=== PATIENT | female | born 1995 | race Caucasian/White ===

== ENCOUNTER 2018-08-30 21:42 | Emergency (ER) | payer OTHER ==
[2018-08-30] MEDS ORDERED: METOCLOPRAMIDE 5 MG/ML 2 ML VIAL IVP STA (22:23)
[2018-08-30] MEDS ORDERED: SODIUM CHLORIDE 0.9% 1,000 ML IV STA (22:23)
[2018-08-30] MEDS ORDERED: diphenhydrAMINE 50 MG/ML 1 ML VIAL IVP STA (22:23)
[2018-08-30 22:59] LABS: Basophils % (A) 0 %; Eosinophils # (A) 0.1 k/uL (0-0.7); Eosinophils % (A) 2 %; HCT 41.4 % (34.0-46.0); HGB 13.5 gm/dL (11.4-16.0); Lymphocytes # (A) 0.7 k/uL (1.0-4.8); Lymphocytes % (A) 8 %; MCH 30.1 pg (25.0-35.0); MCHC 32.6 g/dL (31.0-37.0); MCV 92.3 fL (80.0-100.0); Mean Platelet Volume 7.5; Monocytes # (A) 0.3 k/uL (0-1.0); Monocytes % (A) 4 %; Neutrophils # (A) 7.2 k/uL (1.3-7.7); Neutrophils % (A) 85 %; Platelet Count 292 k/uL (150-450); RBC 4.48 m/uL (3.80-5.40); RDW 13.5 % (11.5-15.5); WBC 8.5 k/uL (3.8-10.6)
[2018-08-30 23:07] LABS: ALT 29 U/L (9-52); AST 25 U/L (14-36); Albumin 4.2 g/dL (3.5-5.0); Alkaline Phosphatase 61 U/L (38-126); Amylase 33 U/L (30-110); Anion Gap 10 mmol/L; Blood Urea Nitrogen 6 mg/dL (7-17); Calcium 9.7 mg/dL (8.4-10.2); Carbon Dioxide 20 mmol/L (22-30); Chloride 106 mmol/L (98-107); Glucose 87 mg/dL (74-99); Lipase 41 U/L (23-300); Potassium 4.1 mmol/L (3.5-5.1); Sodium 136 mmol/L (137-145); Total Bilirubin 0.8 mg/dL (0.2-1.3); Total Protein 7.4 g/dL (6.3-8.2)
[2018-08-30 23:15] LABS: Appearance,Urine Cloudy (Clear); Bilirubin,Urine Negative (Negative); Blood,Urine Negative (Negative); Color,Urine Yellow; Glucose,Urine (UA) Negative (Negative); Ketones,Urine 3+ (Negative); Leukocyte Esterase,Urine Moderate (Negative); Mucus,Urine Many /hpf; Nitrite,Urine Negative (Negative); Protein,Urine 1+ (Negative); RBC,Urine 4 /hpf (0-5); Specific Gravity,Urine 1.032 (1.001-1.035); Squamous Epithelial Cell,Urine 37 /hpf (0-4); Urobilinogen,Urine <2.0 mg/dL (<2.0); WBC,Urine 30 /hpf (0-5)
[2018-08-30] MEDS ORDERED: cefTRIAXone IN SWFI 1,000 MG/10 ML SYRINGE IVP STA (23:22)
[2018-08-30] MEDS ORDERED: SODIUM CHLORIDE 0.9% 500 ML 500 ML IV ONE (23:22)
--- NOTE | 2018-08-30 23:58 | ED ---
Abdominal Pain HPI - General Source: patient Mode of arrival: ambulatory Limitations: no limitations <Stefany Martin - Last Filed: 08/31/18 00:19> <Yesica Gonzales - Last Filed: 08/31/18 00:30> - General Chief Complaint: Abdominal Pain Stated Complaint: Abd pain, 17 weeks preg Time Seen by Provider: 08/30/18 22:01 - History of Present Illness Initial Comments: 23-year-old female patient presents to the emergency department today for evaluation of vomiting and diarrhea. Patient states that symptoms started this morning with some lower abdominal discomfort that progressed to abdominal cramping and diarrhea. Patient states later this evening she developed a sharp pain to her midepigastric region and then started vomiting. Patient's emesis is nonbilious and nonbloody. She denies any fevers or chills with this. States that her son was recently sick with similar symptoms. Patient is 17 weeks preg nant she is . Denies any abnormal vaginal bleeding or discharge. States she has had care and visits have been going well. She denies any recent travel. Denies any ingestion of questionable foods. Patient denies any recent rash, shortness breath, chest pain, constipation, back pain, numbness, tingling, dizziness, weakness, hematuria, dysuria, urinary urgency, urinary frequency, headache, visual changes, or any other complaints. (Stefany Martin) - Related Data Home Medications Medication Instructions Recorded Confirmed Levothyroxine Sodium [Synthroid] 50 mcg PO DAILY 08/30/18 08/30/18 Previous Rx's Medication Instructions Recorded Metoclopramide [Reglan] 10 mg PO Q8H PRN #10 tab 08/31/18 Allergies Allergy/AdvReac Type Severity Reaction Status Date / Time amoxicillin AdvReac Swelling Verified 08/30/18 22:20 Review of Systems ROS Other: All systems not noted in ROS Statement are negative. <Stefany Martin - Last Filed: 08/31/18 00:19> ROS Other: All systems not noted in ROS Statement are negative. <Yesica Gonzales - Last Filed: 08/31/18 00:30> ROS Statement: Those systems with pertinent positive or pertinent negative responses have been documented in the HPI. Past Medical History Past Medical History: Thyroid Disorder History of Any Multi-Drug Resistant Organisms: None Reported Past Surgical History: No Surgical Hx Reported Past Psychological History: Anxiety, Depression Smoking Status: Never smoker Past Alcohol Use History: None Reported Past Drug Use History: None Reported <Stefany Martin - Last Filed: 08/31/18 00:19> General Exam Limitations: no limitations General appearance: alert, in no apparent distress, other (Social well- developed, well-nourished adult female patient in no acute distress. Vital sign s upon presentation are temperature 98.6F, pulse 112, respirations 17, blood pressure 116/74, pulse ox 100% on room air) Eye exam: Present: normal appearance, PERRL, EOMI. Absent: scleral icterus, conjunctival injection, periorbital swelling ENT exam: Present: normal exam, normal oropharynx, mucous membranes moist Respiratory exam: Present: normal lung sounds bilaterally. Absent: respiratory distress, wheezes, rales, rhonchi, stridor Cardiovascular Exam: Present: regular rate, normal rhythm, normal heart sounds. Absent: systolic murmur, diastolic murmur, rubs, gallop, clicks GI/Abdominal exam: Present: soft, tenderness (mild lower abdominal tenderness), normal bowel sounds. Absent: distended, guarding, rebound, rigid Neurological exam: Present: alert, oriented X3, CN II-XII intact Psychiatric exam: Present: normal affect, normal mood Skin exam: Present: warm, dry, intact, normal color. Absent: rash <Stefany Martin - Last Filed: 08/31/18 00:19> Course Vital Signs 08/30/18 08/30/18 21:52 23:33 Temperature 98.6 F Pulse Rate 112 H 89 Respiratory 17 19 Rate Blood Pressure 116/74 104/70 O2 Sat by Pulse 100 100 Oximetry Medical Decision Making - Lab Data Result diagrams: 08/30/18 22:47 08/30/18 22:47 <Stefany Martin - Last Filed: 08/31/18 00:19> - Lab Data Result diagrams: 08/30/18 22:47 08/30/18 22:47 <Yesica Gonzales - Last Filed: 08/31/18 00:30> - Medical Decision Making 23-year-old female patient presents to the emergency department today for evaluation of vomiting and diarrhea. Physical examination did reveal some mild lower abdominal tenderness. No CVA tenderness. heart tones were around 150. Labs reviewed and are unremarkable. Patient is given IV fluids, IV nausea medication. Upon reevaluation she does report improvement of symptoms. She does have comfortable being discharged home at this time. She was given a prescription for Reglan. Given that her son was recently ill with similar symptoms and her symptom pattern which is consistent with viral gastroenteritis. She is instructed to follow-up with her primary care physician for recheck in 1-2 days. She is instructed to follow-up with her [employer] as needed. Return parameters discussed in detail. She verbalizes understanding and agrees with this plan. (Stefany Martin) I was available for consultation in the emergency department. The history and physical exam were done by the midlevel provider. I was consulted for this patient's care. I reviewed the case with the midlevel provider and based on their presentation of the patient, I agree with the assessment, medical decision making and plan of care as documented. (Yesica Gonzales) - Lab Data Lab Results 08/30/18 08/30/18 08/30/18 Range/Units 22:47 22:47 22:47 WBC 8.5 (3.8-10.6) k/uL RBC 4.48 (3.80-5.40) m/uL Hgb 13.5 (11.4-16.0) gm/dL Hct 41.4 (34.0-46.0) % MCV 92.3 (80.0-100.0) fL MCH 30.1 (25.0-35.0) pg MCHC 32.6 (31.0-37.0) g/dL RDW 13.5 (11.5-15.5) % Plt Count 292 (150-450) k/uL Neutrophils % 85 % Lymphocytes % 8 % Monocytes % 4 % Eosinophils % 2 % Basophils % 0 % Neutrophils # 7.2 (1.3-7.7) k/uL Lymphocytes # 0.7 L (1.0-4.8) k/uL Monocytes # 0.3 (0-1.0) k/uL Eosinophils # 0.1 (0-0.7) k/uL Basophils # 0.0 (0-0.2) k/uL Sodium 136 L (137-145) mmol/L Potassium 4.1 (3.5-5.1) mmol/L Chloride 106 (98-107) mmol/L Carbon Dioxide 20 L (22-30) mmol/L Anion Gap 10 mmol/L BUN 6 L (7-17) mg/dL Creatinine 0.36 L (0.52-1.04) mg/dL Est GFR (CKD-EPI)AfAm >90 (>60 ml/min/1.73 sqM) Est GFR (CKD-EPI)NonAf >90 (>60 ml/min/1.73 sqM) Glucose 87 (74-99) mg/dL Calcium 9.7 (8.4-10.2) mg/dL Total Bilirubin 0.8 (0.2-1.3) mg/dL AST 25 (14-36) U/L ALT 29 (9-52) U/L Alkaline Phosphatase 61 (38-126) U/L Total Protein 7.4 (6.3-8.2) g/dL Albumin 4.2 (3.5-5.0) g/dL Amylase 33 (30-110) U/L Lipase 41 (23-300) U/L Urine Color Yellow Urine Appearance Cloudy H (Clear) Urine pH 6.0 (5.0-8.0) Ur Specific [place] 1.032 (1.001-1.035) Urine Protein 1+ H (Negative) Urine Glucose (UA) Negative (Negative) Urine Ketones 3+ H (Negative) Urine Blood Negative (Negative) Urine Nitrite Negative (Negative) Urine Bilirubin Negative (Negative) Urine Urobilinogen <2.0 (<2.0) mg/dL Ur Leukocyte Esterase Moderate H (Negative) Urine RBC 4 (0-5) /hpf Urine WBC 30 H (0-5) /hpf Ur Squamous Epith Cells 37 H (0-4) /hpf Urine Mucus Many H (None) /hpf Disposition Is patient prescribed a controlled substance at d/c from ED?: No Time of Disposition: 00:23 <Stefany Martin - Last Filed: 08/31/18 00:19> <Yesica Gonzales - Last Filed: 08/31/18 00:30> Clinical Impression: Gastroenteritis, Urinary tract infection Disposition: HOME SELF-CARE Condition: Good Instructions (If sedation given, give patient instructions): Urinary Tract Infection in Women (ED), Gastroenteritis (ED) Additional Instructions: Take medications as directed. Start with a clear liquid diet and advance as tolerated. Return to the emergency department immediately for any new, worsening, or concerning symptoms Prescriptions: Metoclopramide [Reglan] 10 mg PO Q8H PRN #10 tab PRN Reason: Vomiting Referrals: Tex Pearson DO [Primary Care Provider] - 1-2 days
[2018-08-31 00:33] VITALS: BP 108/69; PULSE 95; RESP 18; TEMP 98
== END 2018-08-31 00:32 | disposition home or self-care (01) ==
LOC: EC 21:42
DX: O99.612 Diseases of the digestive system complicating pregnancy, second trimester (principal); K52.9 Noninfective gastroenteritis and colitis, unspecified; O23.42 Unspecified infection of urinary tract in pregnancy, second trimester; O99.282 Endocrine, nutritional and metabolic diseases complicating pregnancy, second trimester; E07.9 Disorder of thyroid, unspecified; Z3A.17 17 weeks gestation of pregnancy; Z79.890 Hormone replacement therapy; Z88.0 Allergy status to penicillin
CPT/HCPCS: 36415; 80053; 82150; 83690; 85025; 81001; 99284; 96374; 96375 ×2; 96361; J1200; J2765; J0696; 87086

== ENCOUNTER 2019-02-18 20:01 | Emergency (ER) | payer OTHER ==
[2019-02-18 20:27] VITALS: RESP 16
[2019-02-18] MEDS ORDERED: ACETAMINOPHEN TAB 325 MG TAB PO STA (21:06)
[2019-02-18 21:35] LABS: HCT 35.5 % (34.0-46.0); HGB 11.4 gm/dL (11.4-16.0); MCH 28.3 pg (25.0-35.0); MCV 88.4 fL (80.0-100.0); Platelet Count 288 k/uL (150-450); RBC 4.02 m/uL (3.80-5.40); RDW 14.9 % (11.5-15.5); WBC 7.6 k/uL (3.8-10.6)
[2019-02-18 21:40] LABS: Appearance,Urine Clear (Clear); Bilirubin,Urine Negative (Negative); Blood,Urine Small (Negative); Color,Urine Light Yellow; Glucose,Urine (UA) Negative (Negative); Ketones,Urine Negative (Negative); Leukocyte Esterase,Urine Negative (Negative); Mucus,Urine Rare /hpf; Nitrite,Urine Negative (Negative); Protein,Urine Negative (Negative); RBC,Urine 6 /hpf (0-5); Specific Gravity,Urine 1.011 (1.001-1.035); Squamous Epithelial Cell,Urine <1 /hpf (0-4); Urobilinogen,Urine <2.0 mg/dL (<2.0)
[2019-02-18 21:46] LABS: ALT 31 U/L (9-52); AST 34 U/L (14-36); African American GFR (CKD) >90 (>60 ml/min/1.73 sqM); Albumin 3.8 g/dL (3.5-5.0); Alkaline Phosphatase 98 U/L (38-126); Anion Gap 9 mmol/L; Blood Urea Nitrogen 8 mg/dL (7-17); Calcium 9.2 mg/dL (8.4-10.2); Carbon Dioxide 23 mmol/L (22-30); Chloride 110 mmol/L (98-107); Glucose 104 mg/dL (74-99); Potassium 3.9 mmol/L (3.5-5.1); Sodium 142 mmol/L (137-145); Total Bilirubin 0.3 mg/dL (0.2-1.3); Total Protein 6.9 g/dL (6.3-8.2)
[2019-02-18 22:11] LABS: Lymphocytes # (M) 2.36 k/uL (1.0-4.8); Monocytes # (M) 0.61 k/uL (0-1.0); Neutrophils % (M) 61 %; Nucleated Red Blood Cells 0 /100 WBC (0-0); Total Cells Counted 100
--- NOTE | 2019-02-18 22:30 | ED ---
General Adult HPI - General Chief complaint: Fever Stated complaint: Fever Time Seen by Provider: 02/18/19 20:55 Source: patient Mode of arrival: ambulatory Limitations: no limitations - History of Present Illness Initial comments: Patient is a 23-year-old female presenting to the emergency department which is chief complaint of fever. Patient reports she was diagnosed with pyelonephritis 2 days ago and was admitted for further medical management. Patient reports she was discharged today with antipyretic medication and Cipro. Patient reports she was going to her discharge paperwork and was concerned for possible sepsis. Patient reports that her right flank pain is not resolved over the course of the stay. Patient denies increased urgency, frequency dysuria patient denies any hematuria or hematochezia or melena. Patient denies shortness of breath nausea or vomiting. Patient reports she gave 3 weeks ago. - Related Data Home Medications Medication Instructions Recorded Confirmed Levothyroxine Sodium [Synthroid] 50 mcg PO DAILY 08/30/18 08/30/18 Previous Rx's Medication Instructions Recorded Metoclopramide [Reglan] 10 mg PO Q8H PRN #10 tab 08/31/18 Allergies Allergy/AdvReac Type Severity Reaction Status Date / Time amoxicillin AdvReac Swelling Verified 02/18/19 20:28 Review of Systems ROS Statement: Those systems with pertinent positive or pertinent negative responses have been documented in the HPI. ROS Other: All systems not noted in ROS Statement are negative. Past Medical History Past Medical History: Thyroid Disorder Additional Past Medical History / Comment(s): kidney infection History of Any Multi-Drug Resistant Organisms: None Reported Past Surgical History: No Surgical Hx Reported Past Psychological History: Anxiety, Depression Smoking Status: Never smoker Past Alcohol Use History: None Reported Past Drug Use History: None Reported General Exam Limitations: no limitations General appearance: alert, in no apparent distress Head exam: Present: atraumatic, normocephalic, normal inspection Eye exam: Present: normal appearance, PERRL, EOMI Pupils: Present: normal accommodation ENT exam: Present: normal exam, normal oropharynx, mucous membranes moist, TM's normal bilaterally, normal external ear exam Neck exam: Present: normal inspection, full ROM Respiratory exam: Present: normal lung sounds bilaterally Cardiovascular Exam: Present: regular rate, normal rhythm, normal heart sounds GI/Abdominal exam: Present: soft, normal bowel sounds. Absent: tenderness, rebound Extremities exam: Present: normal inspection, full ROM Back exam: Present: normal inspection, full ROM, tenderness, CVA tenderness (R) Neurological exam: Present: alert, oriented X3 Psychiatric exam: Present: normal affect, normal mood Skin exam: Present: warm, intact, normal color Course Vital Signs 02/18/19 02/18/19 20:24 22:50 Temperature 100.1 F H 98.3 F Pulse Rate 98 89 Respiratory 16 16 Rate Blood Pressure 122/108 119/94 O2 Sat by Pulse 100 100 Oximetry Medical Decision Making - Medical Decision Making Patient is a 23-year-old male presenting to the emergency department with a chief complaint of fever. Patient was discharged today from inpatient treatment for pyelonephritis. Patient reports she is discharged on antipyretics and Cipro. Patient reports she has not noticed any improvement in her symptoms over the course of the day. Patient was also readings or discharge. Work is concerned for sepsis. CBC, CMP, UA, blood cultures and lactic acid were obtained laboratory results are unremarkable. Patient was reassured she is unready on the correct medication regimen and is to continue taking it as prescribed. Patient's vitals are stable. She given reassurance. Strict return parameters were thoroughly discussed with patient was understanding and agreeable. Case discussed with physician. - Lab Data Result diagrams: 02/18/19 21:17 02/18/19 21:17 Lab Results 02/18/19 02/18/19 02/18/19 Range/Units 21:17 21:17 21:17 WBC 7.6 (3.8-10.6) k/uL RBC 4.02 (3.80-5.40) m/uL Hgb 11.4 (11.4-16.0) gm/dL Hct 35.5 (34.0-46.0) % MCV 88.4 (80.0-100.0) fL MCH 28.3 (25.0-35.0) pg MCHC 32.0 (31.0-37.0) g/dL RDW 14.9 (11.5-15.5) % Plt Count 288 (150-450) k/uL Neutrophils % (Manual) 61 % Lymphocytes % (Manual) 31 % Monocytes % (Manual) 8 % Neutrophils # (Manual) 4.64 (1.3-7.7) k/uL Lymphocytes # (Manual) 2.36 (1.0-4.8) k/uL Monocytes # (Manual) 0.61 (0-1.0) k/uL Nucleated RBCs 0 (0-0) /100 WBC Manual Slide Review Performed Sodium 142 (137-145) mmol/L Potassium 3.9 (3.5-5.1) mmol/L Chloride 110 H (98-107) mmol/L Carbon Dioxide 23 (22-30) mmol/L Anion Gap 9 mmol/L BUN 8 (7-17) mg/dL Creatinine 0.45 L (0.52-1.04) mg/dL Est GFR (CKD-EPI)AfAm >90 (>60 ml/min/1.73 sqM) Est GFR (CKD-EPI)NonAf >90 (>60 ml/min/1.73 sqM) Glucose 104 H (74-99) mg/dL Plasma Lactic Acid Sen 0.9 (0.7-2.0) mmol/L Calcium 9.2 (8.4-10.2) mg/dL Total Bilirubin 0.3 (0.2-1.3) mg/dL AST 34 (14-36) U/L ALT 31 (9-52) U/L Alkaline Phosphatase 98 (38-126) U/L Total Protein 6.9 (6.3-8.2) g/dL Albumin 3.8 (3.5-5.0) g/dL Urine Color Urine Appearance (Clear) Urine pH (5.0-8.0) Ur Specific [place] (1.001-1.035) Urine Protein (Negative) Urine Glucose (UA) (Negative) Urine Ketones (Negative) Urine Blood (Negative) Urine Nitrite (Negative) Urine Bilirubin (Negative) Urine Urobilinogen (<2.0) mg/dL Ur Leukocyte Esterase (Negative) Urine RBC (0-5) /hpf Urine WBC (0-5) /hpf Ur Squamous Epith Cells (0-4) /hpf Urine Mucus (None) /hpf 02/18/19 Range/Units 21:17 WBC (3.8-10.6) k/uL RBC (3.80-5.40) m/uL Hgb (11.4-16.0) gm/dL Hct (34.0-46.0) % MCV (80.0-100.0) fL MCH (25.0-35.0) pg MCHC (31.0-37.0) g/dL RDW (11.5-15.5) % Plt Count (150-450) k/uL Neutrophils % (Manual) % Lymphocytes % (Manual) % Monocytes % (Manual) % Neutrophils # (Manual) (1.3-7.7) k/uL Lymphocytes # (Manual) (1.0-4.8) k/uL Monocytes # (Manual) (0-1.0) k/uL Nucleated RBCs (0-0) /100 WBC Manual Slide Review Sodium (137-145) mmol/L Potassium (3.5-5.1) mmol/L Chloride (98-107) mmol/L Carbon Dioxide (22-30) mmol/L Anion Gap mmol/L BUN (7-17) mg/dL Creatinine (0.52-1.04) mg/dL Est GFR (CKD-EPI)AfAm (>60 ml/min/1.73 sqM) Est GFR (CKD-EPI)NonAf (>60 ml/min/1.73 sqM) Glucose (74-99) mg/dL Plasma Lactic Acid Sen (0.7-2.0) mmol/L Calcium (8.4-10.2) mg/dL Total Bilirubin (0.2-1.3) mg/dL AST (14-36) U/L ALT (9-52) U/L Alkaline Phosphatase (38-126) U/L Total Protein (6.3-8.2) g/dL Albumin (3.5-5.0) g/dL Urine Color Light Yellow Urine Appearance Clear (Clear) Urine pH 6.0 (5.0-8.0) Ur Specific [place] 1.011 (1.001-1.035) Urine Protein Negative (Negative) Urine Glucose (UA) Negative (Negative) Urine Ketones Negative (Negative) Urine Blood Small H (Negative) Urine Nitrite Negative (Negative) Urine Bilirubin Negative (Negative) Urine Urobilinogen <2.0 (<2.0) mg/dL Ur Leukocyte Esterase Negative (Negative) Urine RBC 6 H (0-5) /hpf Urine WBC 5 (0-5) /hpf Ur Squamous Epith Cells <1 (0-4) /hpf Urine Mucus Rare H (None) /hpf Disposition Clinical Impression: Fever Disposition: HOME SELF-CARE Condition: Stable Instructions (If sedation given, give patient instructions): Fever in Adults (ED) Additional Instructions: Please continue taking prescribed medication. Please return to emergency department if symptoms worsen. Is patient prescribed a controlled substance at d/c from ED?: No Referrals: None,Stated [Primary Care Provider] - 1-2 days Time of Disposition: 22:30
[2019-02-18 22:51] VITALS: BP 119/94; PULSE 89; TEMP 98.3
== END 2019-02-18 22:51 | disposition home or self-care (01) ==
LOC: EC 20:01
DX: R50.9 Fever, unspecified (principal); E07.9 Disorder of thyroid, unspecified; Z79.890 Hormone replacement therapy; Z88.0 Allergy status to penicillin; Z87.19 Personal history of other diseases of the digestive system
CPT/HCPCS: 36415; 80053; 81001; 83605; 85025; 87040; 99283

== ENCOUNTER 2019-08-01 17:19 | Emergency (ER) | payer OTHER ==
[2019-08-01 17:26] VITALS: RESP 18
[2019-08-01] MEDS ORDERED: SODIUM CHLORIDE 0.9% 1,000 ML IV STA (17:49)
[2019-08-01] MEDS ORDERED: KETOROLAC 30 MG/ML 1 ML VIAL IVP STA (17:49)
[2019-08-01] MEDS ORDERED: ONDANSETRON 4 MG/2 ML VIAL IVP STA (17:49)
[2019-08-01 18:07] LABS: Basophils % (A) 0 %; Eosinophils # (A) 0.1 k/uL (0-0.7); Eosinophils % (A) 2 %; HCT 41.3 % (34.0-46.0); HGB 13.4 gm/dL (11.4-16.0); Lymphocytes # (A) 0.7 k/uL (1.0-4.8); Lymphocytes % (A) 9 %; MCH 28.7 pg (25.0-35.0); MCHC 32.5 g/dL (31.0-37.0); MCV 88.2 fL (80.0-100.0); Mean Platelet Volume 7.9; Monocytes # (A) 0.2 k/uL (0-1.0); Monocytes % (A) 3 %; Neutrophils # (A) 5.9 k/uL (1.3-7.7); Neutrophils % (A) 84 %; Platelet Count 336 k/uL (150-450); RBC 4.69 m/uL (3.80-5.40); RDW 13.2 % (11.5-15.5)
[2019-08-01 18:17] LABS: ALT 32 U/L (4-34); AST 33 U/L (14-36); African American GFR (CKD) >90 (>60 ml/min/1.73 sqM); Albumin 4.9 g/dL (3.5-5.0); Alkaline Phosphatase 67 U/L (38-126); Amylase 44 U/L (30-110); Anion Gap 12 mmol/L; Blood Urea Nitrogen 14 mg/dL (7-17); Calcium 9.4 mg/dL (8.4-10.2); Carbon Dioxide 23 mmol/L (22-30); Chloride 102 mmol/L (98-107); Glucose 96 mg/dL (74-99); Non-African American GFR(CKD) >90 (>60 ml/min/1.73 sqM); Potassium 4.1 mmol/L (3.5-5.1); Sodium 137 mmol/L (137-145); Total Bilirubin 0.6 mg/dL (0.2-1.3); Total Protein 8.4 g/dL (6.3-8.2)
[2019-08-01 18:19] LABS: Partial Thromboplastin Time 23.1 sec (22.0-30.0); Prothrombin Time 10.1 sec (9.0-12.0)
[2019-08-01 18:28] LABS: Appearance,Urine Clear (Clear); Bilirubin,Urine Negative (Negative); Blood,Urine Negative (Negative); Color,Urine Yellow; Glucose,Urine (UA) Negative (Negative); Ketones,Urine Negative (Negative); Leukocyte Esterase,Urine Trace (Negative); Mucus,Urine Rare /hpf; Nitrite,Urine Negative (Negative); PH, Urine 6.5 (5.0-8.0); Protein,Urine Negative (Negative); RBC,Urine 1 /hpf (0-5); Specific Gravity,Urine 1.028 (1.001-1.035); Squamous Epithelial Cell,Urine 2 /hpf (0-4); Urobilinogen,Urine <2.0 mg/dL (<2.0); WBC,Urine 2 /hpf (0-5)
[2019-08-01 19:05] VITALS: BP 120/84; PULSE 94; TEMP 99
--- NOTE | 2019-08-01 19:10 | ED ---
Abdominal Pain HPI - General Chief Complaint: Abdominal Pain Stated Complaint: Abd pain Time Seen by Provider: 08/01/19 17:27 Source: patient Mode of arrival: ambulatory Limitations: no limitations - History of Present Illness Initial Comments: Patient is a 23-year-old female presenting to emergency Department with complaints of upper right abdominal pain that started suddenly this morning. Patient states she woke up with this pain. She states the pain radiates into her back. Patient is also reporting nausea and mild diarrhea. She denies vomiting, fever, chills, chest pain, shortness of breath. She denies any abdominal surgeries. She has been having regular bowel movements prior to today. She states she has not been able to eat anything today, the last thing she ate last night was meatloaf. She denies , vaginal discharge. She states l ittle chance for secondary to her finishing her period yesterday. She has no other complaints at this time. Upon arrival to the ER, her vital signs are stable. - Related Data Home Medications Medication Instructions Recorded Confirmed Levothyroxine Sodium [Synthroid] 50 mcg PO DAILY 08/30/18 08/30/18 Previous Rx's Medication Instructions Recorded Metoclopramide [Reglan] 10 mg PO Q8H PRN #10 tab 08/31/18 Ketorolac [Toradol] 10 mg PO Q8HR #10 tab 08/01/19 Ondansetron Odt [Zofran Odt] 4 mg PO Q8HR PRN #10 tab 08/01/19 Allergies Allergy/AdvReac Type Severity Reaction Status Date / Time amoxicillin AdvReac Swelling Verified 08/01/19 17:26 Review of Systems ROS Statement: Those systems with pertinent positive or pertinent negative responses have been documented in the HPI. ROS Other: All systems not noted in ROS Statement are negative. Past Medical History Past Medical History: Thyroid Disorder Additional Past Medical History / Comment(s): kidney infection History of Any Multi-Drug Resistant Organisms: None Reported Past Surgical History: No Surgical Hx Reported Past Psychological History: Anxiety, Depression Smoking Status: Never smoker Past Alcohol Use History: None Reported Past Drug Use History: None Reported General Exam - General Exam Comments Initial Comments: GENERAL: Well-appearing, well-nourished and in no acute distress. HEAD: Atraumatic, normocephalic. EYES: Pupils equal round and reactive to light, extraocular movements intact, sclera anicteric, conjunctiva are normal. ENT: TMs normal, nares patent, oropharynx clear without exudates. Moist mucous membranes. NECK: Normal range of motion, supple without lymphadenopathy or JVD. LUNGS: Breath sounds clear to auscultation bilaterally and equal. No wheezes rales or rhonchi. HEART: Regular rate and rhythm without murmurs, rubs or gallops. ABDOMEN: Tender to palpation in the right upper quadrant and epigastric area. No flank pain. Positive Kendrick sign. Soft, normoactive bowel sounds. No masses appreciated. : Deferred EXTREMITIES: Normal range of motion, no pitting or edema. No clubbing or cyanosis. NEUROLOGICAL: Normal speech, normal gait. PSYCH: Normal mood, normal affect. SKIN: Warm, Dry, normal turgor, no rashes or lesions noted. Limitations: no limitations Course Vital Signs 08/01/19 08/01/19 17:23 19:05 Temperature 97.7 F 99.0 F Pulse Rate 112 H 94 Respiratory 18 18 Rate Blood Pressure 115/76 120/84 O2 Sat by Pulse 100 98 Oximetry Medical Decision Making - Medical Decision Making Patient is a 23-year-old female presenting with right upper quadrant pain that started early this morning. Also reports nausea and mild diarrhea. Vital signs are stable. Exam reveals right upper quadrant tenderness, positive Kendrick sign. Lab work is unremarkable. Urine is normal, not . Ultrasound of the gallbladder shows no gallstones or dilated ducts. There are hyperechoic areas in the liver of uncertain significance. A follow-up ultrasound is recommended. Patient was given fluids, Toradol and reports improvement in her symptoms. I discussed with patient that her symptoms are most likely related to biliary colic. I recommended follow-up with the surgeon. Patient will be sent home wit h Zofran and Toradol to use as needed for future attacks. She is in agreement with this plan of care. She is stable for discharge at this time. Return parameters were discussed with the patient she verbalized understanding. - Lab Data Result diagrams: 08/01/19 18:00 08/01/19 18:00 Lab Results 08/01/19 08/01/19 08/01/19 Range/Units 18:00 18:00 18:00 WBC 7.0 (3.8-10.6) k/uL RBC 4.69 (3.80-5.40) m/uL Hgb 13.4 (11.4-16.0) gm/dL Hct 41.3 (34.0-46.0) % MCV 88.2 (80.0-100.0) fL MCH 28.7 (25.0-35.0) pg MCHC 32.5 (31.0-37.0) g/dL RDW 13.2 (11.5-15.5) % Plt Count 336 (150-450) k/uL Neutrophils % 84 % Lymphocytes % 9 % Monocytes % 3 % Eosinophils % 2 % Basophils % 0 % Neutrophils # 5.9 (1.3-7.7) k/uL Lymphocytes # 0.7 L (1.0-4.8) k/uL Monocytes # 0.2 (0-1.0) k/uL Eosinophils # 0.1 (0-0.7) k/uL Basophils # 0.0 (0-0.2) k/uL PT 10.1 (9.0-12.0) sec INR 1.0 (<1.2) APTT 23.1 (22.0-30.0) sec Sodium 137 (137-145) mmol/L Potassium 4.1 (3.5-5.1) mmol/L Chloride 102 (98-107) mmol/L Carbon Dioxide 23 (22-30) mmol/L Anion Gap 12 mmol/L BUN 14 (7-17) mg/dL Creatinine 0.47 L (0.52-1.04) mg/dL Est GFR (CKD-EPI)AfAm >90 (>60 ml/min/1.73 sqM) Est GFR (CKD-EPI)NonAf >90 (>60 ml/min/1.73 sqM) Glucose 96 (74-99) mg/dL Calcium 9.4 (8.4-10.2) mg/dL Total Bilirubin 0.6 (0.2-1.3) mg/dL AST 33 (14-36) U/L ALT 32 (4-34) U/L Alkaline Phosphatase 67 (38-126) U/L Total Protein 8.4 H (6.3-8.2) g/dL Albumin 4.9 (3.5-5.0) g/dL Amylase 44 (30-110) U/L Lipase 48 (23-300) U/L Urine Color Urine Appearance (Clear) Urine pH (5.0-8.0) Ur Specific [place] (1.001-1.035) Urine Protein (Negative) Urine Glucose (UA) (Negative) Urine Ketones (Negative) Urine Blood (Negative) Urine Nitrite (Negative) Urine Bilirubin (Negative) Urine Urobilinogen (<2.0) mg/dL Ur Leukocyte Esterase (Negative) Urine RBC (0-5) /hpf Urine WBC (0-5) /hpf Ur Squamous Epith Cells (0-4) /hpf Urine Mucus (None) /hpf Urine HCG, Qual (Not Detectd) 08/01/19 08/01/19 Range/Units 18:00 18:00 WBC (3.8-10.6) k/uL RBC (3.80-5.40) m/uL Hgb (11.4-16.0) gm/dL Hct (34.0-46.0) % MCV (80.0-100.0) fL MCH (25.0-35.0) pg MCHC (31.0-37.0) g/dL RDW (11.5-15.5) % Plt Count (150-450) k/uL Neutrophils % % Lymphocytes % % Monocytes % % Eosinophils % % Basophils % % Neutrophils # (1.3-7.7) k/uL Lymphocytes # (1.0-4.8) k/uL Monocytes # (0-1.0) k/uL Eosinophils # (0-0.7) k/uL Basophils # (0-0.2) k/uL PT (9.0-12.0) sec INR (<1.2) APTT (22.0-30.0) sec Sodium (137-145) mmol/L Potassium (3.5-5.1) mmol/L Chloride (98-107) mmol/L Carbon Dioxide (22-30) mmol/L Anion Gap mmol/L BUN (7-17) mg/dL Creatinine (0.52-1.04) mg/dL Est GFR (CKD-EPI)AfAm (>60 ml/min/1.73 sqM) Est GFR (CKD-EPI)NonAf (>60 ml/min/1.73 sqM) Glucose (74-99) mg/dL Calcium (8.4-10.2) mg/dL Total Bilirubin (0.2-1.3) mg/dL AST (14-36) U/L ALT (4-34) U/L Alkaline Phosphatase (38-126) U/L Total Protein (6.3-8.2) g/dL Albumin (3.5-5.0) g/dL Amylase (30-110) U/L Lipase (23-300) U/L Urine Color Yellow Urine Appearance Clear (Clear) Urine pH 6.5 (5.0-8.0) Ur Specific [place] 1.028 (1.001-1.035) Urine Protein Negative (Negative) Urine Glucose (UA) Negative (Negative) Urine Ketones Negative (Negative) Urine Blood Negative (Negative) Urine Nitrite Negative (Negative) Urine Bilirubin Negative (Negative) Urine Urobilinogen <2.0 (<2.0) mg/dL Ur Leukocyte Esterase Trace H (Negative) Urine RBC 1 (0-5) /hpf Urine WBC 2 (0-5) /hpf Ur Squamous Epith Cells 2 (0-4) /hpf Urine Mucus Rare H (None) /hpf Urine HCG, Qual Not Detected (Not Detectd) Disposition Clinical Impression: Abdominal pain, Biliary colic Disposition: HOME SELF-CARE Condition: Stable Instructions (If sedation given, give patient instructions): Biliary Colic (ED) Additional Instructions: Please return to the Emergency Department if symptoms worsen or any other concerns. Be cautious of foods are high in fat. May take Toradol and/or Zofran as needed for pain and nausea. Follow up with surgeon as discussed. Follow up with PCP. Prescriptions: Ketorolac [Toradol] 10 mg PO Q8HR #10 tab Ondansetron Odt [Zofran Odt] 4 mg PO Q8HR PRN #10 tab PRN Reason: Nausea Is patient prescribed a controlled substance at d/c from ED?: No Referrals: Fredrick Kumar MD [Primary Care Provider] - 1-2 days
--- NOTE | 2019-08-01 19:18 | US ---
EXAMINATION TYPE: US gallbladder DATE OF EXAM: 08/01/2019 COMPARISON: NONE CLINICAL HISTORY: pain, nausea. Pain, nausea. EXAM MEASUREMENTS: Liver Length: 17.4 cm Gallbladder Wall: 0.26 cm CBD: 0.43 cm Right Kidney: 13.0 x 5.5 x 4.7 cm *Limited due to gas. Pancreas: Not well visualized. Liver: Appears heterogeneous. Measures upper limits of normal. Hypoechoic areas seen within the left lobe of the liver. #1 Vascularity is present and measures: 2.2 x 2.5 x 1.8 cm. #2 Area is posterior and indistinct, measures: 3.8 x 3.6 x 4.2 cm. Gallbladder: Appears to be anechoic. Measures 8.5 cm in length and 3.7 cm in width. Evidence for sonographic Kendrick's sign: Pain is throughout abdomen. CBD: Appears wnl Right Kidney: Appears enlarged. No hydronephrosis or masses seen IMPRESSION: No gallstones or dilated ducts. There are hypoechoic areas in the liver of uncertain significance. Th kee have high probability of being benign in this relatively young patient. This could probably be fo llowed conservatively with repeat ultrasound in 6 months. There is probably fatty infiltration of the liver.
== END 2019-08-01 19:45 | disposition home or self-care (01) ==
LOC: EC 17:19
DX: K80.50 Calculus of bile duct without cholangitis or cholecystitis without obstruction (principal); R93.2 Abnormal findings on diagnostic imaging of liver and biliary tract; Z32.02 Encounter for pregnancy test, result negative; R19.7 Diarrhea, unspecified; E07.9 Disorder of thyroid, unspecified; Z88.0 Allergy status to penicillin; Z79.890 Hormone replacement therapy
CPT/HCPCS: 36415; 80053; 82150; 83690; 85025; 85610; 85730; 81001; 81025; 76705; 99284; 96374; 96375; 96361; J2405; J1885

== ENCOUNTER 2020-09-20 22:48 | Emergency (ER) | payer OTHER ==
[2020-09-20] MEDS ORDERED: ACETAMINOPHEN TAB 325 MG TAB PO STA (23:19)
[2020-09-20] MEDS ORDERED: IBUPROFEN 400 MG TAB PO STA (23:19)
[2020-09-20 23:43] LABS: Appearance,Urine Clear (Clear); Bilirubin,Urine Negative (Negative); Blood,Urine Negative (Negative); Color,Urine Yellow; Glucose,Urine (UA) Negative (Negative); Ketones,Urine Negative (Negative); Leukocyte Esterase,Urine Negative (Negative); Nitrite,Urine Negative (Negative); PH, Urine 5.5 (5.0-8.0); Protein,Urine Negative (Negative); Specific Gravity,Urine 1.024 (1.001-1.035); Urobilinogen,Urine <2.0 mg/dL (<2.0)
--- NOTE | 2020-09-21 00:46 | ED ---
General Adult HPI - General Chief complaint: Abdominal Pain Stated complaint: Back pain, nausea, vomiting Time Seen by Provider: 09/20/20 22:59 Source: patient Mode of arrival: ambulatory Limitations: no limitations - History of Present Illness Onset/Timin -: hour(s) Location: head, back Radiation: non-radiation Quality: aching Consistency: constant Improves with: none Worsens with: none Associated Symptoms: fever/chills Treatments Prior to Arrival: none - Related Data Previous Rx's Medication Instructions Recorded Ibuprofen 800 mg PO TID #20 tablet 09/21/20 Allergies Allergy/AdvReac Type Severity Reaction Status Date / Time amoxicillin AdvReac Swelling Verified 09/20/20 23:16 Penicillins AdvReac Swelling Verified 09/20/20 23:16 Review of Systems ROS Statement: Those systems with pertinent positive or pertinent negative responses have been documented in the HPI. ROS Other: All systems not noted in ROS Statement are negative. Constitutional: Reports: fever, chills Eyes: Denies: eye pain, eye discharge ENT: Reports: congestion. Denies: throat pain Respiratory: Reports: cough. Denies: dyspnea, wheezes Cardiovascular: Denies: chest pain, palpitations, edema, syncope Gastrointestinal: Reports: diarrhea. Denies: abdominal pain, nausea, vomiting Genitourinary: Denies: dysuria, hematuria Musculoskeletal: Reports: back pain, myalgia Skin: Denies: rash Neurological: Denies: headache, weakness, numbness Past Medical History Past Medical History: Thyroid Disorder Additional Past Medical History / Comment(s): kidney infection, History of Any Multi-Drug Resistant Organisms: None Reported Past Surgical History: No Surgical Hx Reported Past Psychological History: Anxiety, Depression Smoking Status: Current every day smoker Past Alcohol Use History: None Reported Past Drug Use History: None Reported General Exam Limitations: no limitations General appearance: alert, in no apparent distress Head exam: Present: atraumatic, normocephalic Eye exam: Present: normal appearance. Absent: scleral icterus, conjunctival injection ENT exam: Present: normal oropharynx Neck exam: Present: normal inspection, full ROM. Absent: tenderness, meningismus Respiratory exam: Present: normal lung sounds bilaterally. Absent: respiratory distress, wheezes, rales, rhonchi, stridor Cardiovascular Exam: Present: normal rhythm, tachycardia, normal heart sounds. Absent: systolic murmur, diastolic murmur, rubs, gallop GI/Abdominal exam: Present: soft. Absent: distended, tenderness, guarding, rebound, rigid, mass Extremities exam: Present: normal inspection, normal capillary refill. Absent: pedal edema, calf tenderness Back exam: Present: normal inspection. Absent: CVA tenderness (R), CVA tenderness (L) Neurological exam: Present: alert Skin exam: Present: warm, dry, intact, normal color. Absent: rash Course Vital Signs 09/20/20 09/21/20 22:52 01:58 Temperature 99.9 F H 98.9 F Pulse Rate 120 H 108 H Respiratory 18 19 Rate Blood Pressure 99/64 100/65 O2 Sat by Pulse 100 98 Oximetry Medical Decision Making - Lab Data Lab Results 09/20/20 09/20/20 09/20/20 Range/Units 22:59 22:59 22:59 Urine Color Yellow Urine Appearance Clear (Clear) Urine pH 5.5 (5.0-8.0) Ur Specific [place] 1.024 (1.001-1.035) Urine Protein Negative (Negative) Urine Glucose (UA) Negative (Negative) Urine Ketones Negative (Negative) Urine Blood Negative (Negative) Urine Nitrite Negative (Negative) Urine Bilirubin Negative (Negative) Urine Urobilinogen <2.0 (<2.0) mg/dL Ur Leukocyte Esterase Negative (Negative) Urine HCG, Qual Not Detected (Not Detectd) Coronavirus (PCR) Not Detected (Not Detectd) Disposition Clinical Impression: Viral syndrome Disposition: HOME SELF-CARE Condition: Good Instructions (If sedation given, give patient instructions): Viral Syndrome (ED) Prescriptions: Ibuprofen 800 mg PO TID #20 tablet Is patient prescribed a controlled substance at d/c from ED?: No Referrals: Fredrick Kumar MD [Primary Care Provider] - 1-2 days
[2020-09-21 01:59] VITALS: BP 100/65; PULSE 108; RESP 19; TEMP 98.9
== END 2020-09-21 01:59 | disposition home or self-care (01) ==
LOC: EC 22:48
DX: B34.9 Viral infection, unspecified (principal); M54.9 Dorsalgia, unspecified; F41.9 Anxiety disorder, unspecified; F32.9 Major depressive disorder, single episode, unspecified; F17.200 Nicotine dependence, unspecified, uncomplicated; Z20.822 Contact with and (suspected) exposure to COVID-19; Z88.0 Allergy status to penicillin
CPT/HCPCS: 81003; 81025; 87635; 99284

== ENCOUNTER 2024-04-13 16:28 | Emergency (ER) | payer OTHER ==
[2024-04-13] MEDS: HYDROmorphone 0.5 MG/0.5 ML SYRINGE IM STA (17:51)
[2024-04-13 18:16] VITALS: RESP 18; TEMP 98.1
--- NOTE | 2024-04-13 18:21 | ED ---
General Adult HPI - General Chief complaint: Head Injury Stated complaint: head injury Time Seen by Provider: 04/13/24 17:00 Source: patient, RN notes reviewed, old records reviewed Mode of arrival: ambulatory Limitations: no limitations - History of Present Illness Initial comments: Is a 28-year-old female who presents to the emergency department stating that she was lifting weights and she had a 10 pound dumbbell above her head and she dropped it onto her face she complains of tenderness on the left side of her nose and into the forehead region. Patient denies any numbness weakness. Patient states she does have a headache. Patient denies any any neck pain. Patient denies any other injury. Patient denies any LOC - Related Data Previous Rx's Medication Instructions Recorded Ibuprofen 800 mg PO TID #20 tablet 09/21/20 Allergies Allergy/AdvReac Type Severity Reaction Status Date / Time amoxicillin AdvReac Swelling Verified 04/13/24 17:01 Penicillins AdvReac Swelling Verified 04/13/24 17:01 Review of Systems ROS Statement: Those systems with pertinent positive or pertinent negative responses have been documented in the HPI. ROS Other: All systems not noted in ROS Statement are negative. Past Medical History Past Medical History: Thyroid Disorder Additional Past Medical History / Comment(s): kidney infection, History of Any Multi-Drug Resistant Organisms: None Reported Past Surgical History: No Surgical Hx Reported Past Psychological History: Anxiety, Depression Smoking Status: Current every day smoker Past Alcohol Use History: None Reported Past Drug Use History: None Reported General Exam - General Exam Comments Initial Comments: GENERAL: Patient is well-developed and well-nourished. Patient is nontoxic and well- hydrated and is in mild distress. ENT: Neck is soft and supple. No significant lymphadenopathy is noted. Oropharynx is clear. Moist mucous membranes. Neck has full range of motion without eliciting any pain. Patient has tenderness on the medial aspect of the nose and the medial superior aspect of the left orbit EYES: The sclera were anicteric and conjunctiva were pink and moist. Extraocular movements were intact and pupils were equal round and reactive to light. Eyelids were unremarkable. SKIN: Skin is clear with no lesions or rashes and otherwise unremarkable. NEUROLOGIC: Patient is alert and oriented x3. Cranial nerves II through XII are grossly intact. Motor and sensory are also intact. Normal speech, volume and content. Symmetrical smile. MUSCULOSKELETAL: Normal extremities with adequate strength and full range of motion. LYMPHATICS: No significant lymphadenopathy is noted PSYCHIATRIC: Normal psychiatric evaluation. Limitations: no limitations Course Vital Signs 04/13/24 04/13/24 16:59 18:14 Temperature 98.4 F 98.1 F Pulse Rate 105 H 90 Respiratory 20 18 Rate Blood Pressure 134/90 124/85 O2 Sat by Pulse 97 98 Oximetry Medical Decision Making - Medical Decision Making Was pt. sent in by a medical professional or institution (DAVINA Carvajal, [employer]ESSER TENDER, urgent care, hospital, or [facility]...) When possible be specific @ -No Did you speak to anyone other than the patient for history (EMS, parent, family, police, friend...)? What history was obtained from this source @ -No Did you review nursing and triage notes (agree or disagree)? Why? @ -I reviewed and agree with nursing and triage notes Were old charts reviewed (outside hosp., previous admission, EMS record, old EKG, old radiological studies, urgent care reports/EKG's, [facility] records)? Report findings @ -No old charts were reviewed Differential Diagnosis? @ -Facial fracture, skull fracture, intracranial hemorrhage, orbital fracture, this is not an all-inclusive list EKG interpreted by me (3pts min.). @ -As above X-rays interpreted by me (1pt min.). @ -None done CT interpreted by me (1pt min.). @ -CT of the brain shows no acute abnormality. CT of the facial bones shows no acute abnormality. U/S interpreted by me (1pt. min.). @ -None done What testing was considered but not performed or refused? (CT, X-rays, U/S, labs)? Why? @ -None What meds were considered but not given or refused? Why? @ -None Did you discuss the management of the patient with other professionals (professionals i.e. DAVINA Carvajal, DRESSER TENDER, lab, RT, psych nurse, rn social work, security sme, teacher, space officer, welfare case worker)? Give summary @ -No Was smoking cessation discussed for >3mins.? @ -No Was critical care preformed (if so, how long)? @ -No Were there social determinants of health that impacted care today? How? (Homelessness, low income, unemployed, alcoholism, drug addiction, transportation, low edu. Level, literacy, decrease access to med. care, long-term, rehab)? @ -No Was there de-escalation of care discussed even if they declined (Discuss DNR or withdrawal of care, Hospice)? DNR status @ -No What co-morbidities impacted this encounter? (DM, HTN, Smoking, COPD, CAD, Cancer, CVA, ARF, Chemo, Hep., AIDS, mental health diagnosis, sleep apnea, morbid obesity)? @ -None Was patient admitted / discharged? Hospital course, mention meds given and route, prescriptions, significant lab abnormalities, going to OR and other pertinent info. @ -Patient was given Dilaudid and Toradol for pain. Patient was feeling considered better. CAT scan showed no acute abnormality. Undiagnosed new problem with uncertain prognosis? @ -No Drug Therapy requiring intensive monitoring for toxicity (Heparin, Nitro, Insulin, Cardizem)? @ -No Were any procedures done? @ -No Diagnosis/symptom? @ -Facial contusion Acute, or Chronic, or Acute on Chronic? @ -Acute Uncomplicated (without systemic symptoms) or Complicated (systemic symptoms)? @ -Uncomplicated Side effects of treatment? @ -No Exacerbation, Progression, or Severe Exacerbation? @ -No Poses a threat to life or bodily function? How? (Chest pain, [place], [place], pneumonia, PE, COPD, DKA, ARF, appy, cholecystitis, CVA, Diverticulitis, Homicidal, Suicidal, threat to staff... and all critical care pts) @ -No Disposition Clinical Impression: Facial contusion Disposition: HOME SELF-CARE Instructions (If sedation given, give patient instructions): Facial Contusion (ED) Is patient prescribed a controlled substance at d/c from ED?: No Referrals: Fredrick Kumar MD [Primary Care Provider] - 1-2 days Time of Disposition: 18:45
--- NOTE | 2024-04-13 18:27 | CT ---
EXAMINATION TYPE: CT brain wo con DATE OF EXAM: 04/13/2024 6:17 PM COMPARISON: None. CLINICAL INDICATION: Female, 28 years old with history of Trauma, headache after 10lb dumbell fell on pts head/face left side TECHNIQUE: CT of the brain is performed utilizing 3 mm thick sections through the posterior fossa and 3 mm thick sections through the remaining calvarium. Study is performed within 24 hours of arrival to the hospital. Contrast used: mL of , (none if empty) Oral contrast used: (none if empty) CT DLP: 1182.4 mGycm, Automated exposure control for dose reduction was used. FINDINGS: No abnormal hyperdensity is present to suggest an acute intracranial hemorrhage. No mass lesion is evident. No acute infarcts are evident. Ventricles and sulci are appropriate for the patient age. Paranasal sinuses and mastoid air cells within the [id number]-awoo are clear. No acute fractures are evident. Soft tissues appear normal. IMPRESSION: 1. No acute intracranial process. Follow up MRI can be performed as clinically indicated. [facility], , 04/13/2024 6:25 PM
--- NOTE | 2024-04-13 18:30 | CT ---
EXAMINATION TYPE: CT facial bones wo con DATE OF EXAM: 04/13/2024 6:17 PM COMPARISON: None. CLINICAL INDICATION: Female, 28 years old with history of Trauma, headache after 10lb dumbell fell on pts head/face left side TECHNIQUE: The paranasal sinuses are examined in the axial plane at 2 mm thick sections. Reconstruct ed images in the coronal plane were obtained. Contrast used: mL of , (none if empty) Oral contrast used: (none if empty) CT DLP: 1182.4 mGycm, Automated exposure control for dose reduction was used. FINDINGS: There is minimal dental amalgam scatter artifact The maxillary sinuses are clear. The ethmoid air cells are clear. The sphenoid sinuses are clear. The frontal sinuses are clear. The septum is evaluated. There is septal deviation to the right. Ostiomeatal units are obstructed within the hiatus semilunaris bilaterally. The zygomatic arches are intact. Maxillary wild are intact. Nasal bones are intact. Greater wings of sphenoid are normal. Temporal bones appear intact. Mandible and maxilla are normal IMPRESSION: 1. No acute osseous abnormality. 2. No suspicious soft tissue injury identified. [facility], , 04/13/2024 6:28 PM
[2024-04-13] MEDS: KETOROLAC 15 MG/ML 1 ML VIAL IM STA (19:08)
[2024-04-13] MEDS: ACET/COD 300 MG/30 MG STARTER PACK 6 TAB BTL PO STA (19:10)
[2024-04-13 19:14] VITALS: BP 124/89; PULSE 89
== END 2024-04-13 19:17 | disposition home or self-care (01) ==
LOC: EC 16:28
DX: S00.83XA Contusion of other part of head, initial encounter (principal); F17.200 Nicotine dependence, unspecified, uncomplicated; Z88.0 Allergy status to penicillin; X50.0XXA Overexertion from strenuous movement or load, initial encounter
CPT/HCPCS: 99284; 70486; 70450; 96372 ×2; J1885; J1171